=== PATIENT | male | born 1990 | race Caucasian/White ===

== ENCOUNTER 2021-06-08 09:42 | Inpatient (IN) | payer OTHER ==
[2021-06-08] MEDS ORDERED: BISMUTH SUBSALICYLATE 524 MG/30 ML PO PRN (09:46)
[2021-06-08] MEDS ORDERED: NICOTINE 10 MG CARTRIDGE (INHALER) IH PRN (09:46)
[2021-06-08] MEDS ORDERED: MENTHOL/PHENOL 1 EACH UD MM PRN (09:46)
[2021-06-08] MEDS ORDERED: MAGNESIUM CITRATE 300 ML BOTTLE PO PRN (09:46)
[2021-06-08] MEDS ORDERED: ACETAMINOPHEN 325 MG TABLET (FP) PO PRN ×2 (09:46)
[2021-06-08] MEDS ORDERED: MAG HYDROX/AL HYDROX/SIMETH 30 ML UNIT-DOSE CUP PO PRN (09:46)
[2021-06-08] MEDS ORDERED: MAGNESIUM HYDROX 2400MG/30ML ORAL SUSPENSION 30 ML CUP PO PRN (09:46)
[2021-06-08] MEDS ORDERED: methaDONE HCL 10 MG TABLET PO SCH (10:00)
[2021-06-08 10:18] VITALS: BMI 21.2
[2021-06-08] MEDS ORDERED: methaDONE 80 MG, methaDONE 10 MG PO ONE (10:45)
[2021-06-08] MEDS ORDERED: methaDONE HCL 10 MG TABLET ONE (10:49)
[2021-06-08] MEDS ORDERED: methaDONE HCL 40 MG DISPERSABLE TABLET ONE (10:50)
[2021-06-08] MEDS: METHOCARBAMOL 500 MG TABLET PO PRN ×2 (10:51→18:58)
[2021-06-08] MEDS: PRENATAL VITAMINS W/ FOLIC ACID TABLET (FP) PO SCH (10:52)
[2021-06-08] MEDS: NICOTINE 7 MG/24 HOURS TOPICAL PATCH TD SCH (10:52)
[2021-06-08] MEDS: diazePAM 5 MG TABLET PO SCH ×3 (10:52→22:14)
[2021-06-08] MEDS: hydrOXYzine PAMOATE 25 MG CAPSULE (FP) PO SCH ×5 (10:52→23:22)
[2021-06-08] MEDS: ONDANSETRON *ODT* 4 MG TABLET SL PRN ×2 (10:56→18:58)
[2021-06-08] MEDS ORDERED: MELATONIN 5 MG TABLETS PO PRN (12:35)
[2021-06-08] MEDS: diazePAM 5 MG TABLET PO PRN (14:56)
[2021-06-08] MEDS: GABAPENTIN 300 MG CAPSULE PO SCH ×2 (14:56→22:14)
[2021-06-08] MEDS: VENLAFAXINE HCL 150 MG E.R. CAPSULE PO SCH (14:56)
[2021-06-08] MEDS: cloNIDine HCL 0.1 MG TABLET PO PRN (18:54)
[2021-06-08] MEDS ORDERED: MELATONIN 5 MG TABLETS PO SCH (22:00)
[2021-06-08] MEDS: THIAMINE HCL 100 MG TABLET (FP) PO SCH (22:14)
[2021-06-08] MEDS: QUEtiapine FUMARATE 100 MG TABLET (FP) PO SCH (23:21)
[2021-06-09] MEDS ORDERED: methaDONE HCL 10 MG TABLET ONE (04:01)
[2021-06-09] MEDS ORDERED: methaDONE HCL 40 MG DISPERSABLE TABLET ONE (04:02)
[2021-06-09] MEDS: methaDONE 80 MG, methaDONE 10 MG PO SCH (05:22)
[2021-06-09] MEDS: GABAPENTIN 300 MG CAPSULE PO SCH ×3 (05:23→22:11)
[2021-06-09] MEDS: diazePAM 5 MG TABLET PO SCH ×4 (05:23→22:11)
[2021-06-09] MEDS: ONDANSETRON *ODT* 4 MG TABLET SL PRN ×2 (05:29→17:10)
[2021-06-09] MEDS: hydrOXYzine PAMOATE 25 MG CAPSULE (FP) PO SCH ×5 (05:53→22:12)
[2021-06-09] MEDS: VENLAFAXINE HCL 150 MG E.R. CAPSULE PO SCH (07:28)
[2021-06-09] MEDS ORDERED: TRIMETHOBENZAMIDE HCL 200MG/2ML INJ IM PRN (08:28)
[2021-06-09] MEDS: diazePAM 5 MG TABLET PO PRN (08:38)
[2021-06-09] MEDS: PRENATAL VITAMINS W/ FOLIC ACID TABLET (FP) PO SCH (10:05)
[2021-06-09] MEDS: NICOTINE 7 MG/24 HOURS TOPICAL PATCH TD SCH (10:06)
[2021-06-09] MEDS: METHOCARBAMOL 500 MG TABLET PO PRN ×2 (10:50→22:14)
[2021-06-09 12:47] LABS: HEMATOCRIT 36.9 % (35.4-49); HEMOGLOBIN 12.4 GM/dL (11.7-16.9); MCH 25.9 pg (25.7-33.7); MCHC 33.5 g/dl (32.0-35.9); MEAN CELL VOLUME 77.4 fl (80-96); MEAN PLT VOLUME 8.7 fl (7.5-11.1); PLATELET COUNT 327 10^3/uL (134-434); RBC 4.77 M/mm3 (4.00-5.60); WHITE BLOOD COUNT 7.5 K/mm3 (4.0-10.0)
[2021-06-09 12:48] LABS: ALBUMIN 3.2 g/dl (3.4-5.0); BLOOD UREA NITROGEN 12.3 mg/dL (7-18); CALCIUM 8.7 mg/dL (8.5-10.1)
[2021-06-09 12:52] LABS: CREATININE 0.7 mg/dL (0.55-1.3)
[2021-06-09 12:53] LABS: BILIRUBIN,TOTAL 0.2 mg/dL (0.2-1)
[2021-06-09] MEDS: cloNIDine HCL 0.1 MG TABLET PO PRN ×2 (13:29→22:11)
[2021-06-09 13:47] LABS: HIV INTERPRETATION NEGATIVE (NEGATIVE)
[2021-06-09] MEDS: IBUPROFEN 400 MG TABLET (FP) PO PRN (17:10)
[2021-06-09] MEDS: THIAMINE HCL 100 MG TABLET (FP) PO SCH (22:11)
[2021-06-09] MEDS: QUEtiapine FUMARATE 100 MG TABLET (FP) PO SCH (23:47)
[2021-06-10] MEDS ORDERED: methaDONE HCL 40 MG DISPERSABLE TABLET ONE (04:05)
[2021-06-10] MEDS ORDERED: methaDONE HCL 10 MG TABLET ONE (04:05)
[2021-06-10] MEDS: ONDANSETRON *ODT* 4 MG TABLET SL PRN (05:13)
[2021-06-10] MEDS: diazePAM 5 MG TABLET PO SCH ×3 (05:14→22:30)
[2021-06-10] MEDS: GABAPENTIN 300 MG CAPSULE PO SCH ×3 (05:14→22:30)
[2021-06-10] MEDS: methaDONE 80 MG, methaDONE 10 MG PO SCH (05:15)
[2021-06-10] MEDS: hydrOXYzine PAMOATE 25 MG CAPSULE (FP) PO SCH ×5 (05:19→22:30)
[2021-06-10] MEDS: VENLAFAXINE HCL 150 MG E.R. CAPSULE PO SCH (07:13)
[2021-06-10] MEDS: cloNIDine HCL 0.1 MG TABLET PO PRN (07:51)
[2021-06-10] MEDS: METHOCARBAMOL 500 MG TABLET PO PRN (07:51)
[2021-06-10] MEDS: PRENATAL VITAMINS W/ FOLIC ACID TABLET (FP) PO SCH (10:24)
[2021-06-10] MEDS: IBUPROFEN 400 MG TABLET (FP) PO PRN (10:26)
[2021-06-10] MEDS: diazePAM 5 MG TABLET PO PRN ×2 (10:27→17:39)
[2021-06-10] MEDS: NICOTINE 7 MG/24 HOURS TOPICAL PATCH TD SCH (11:05)
[2021-06-10] MEDS: NICOTINE POLACRILEX 2 MG GUM BUC PRN ×2 (11:46→17:40)
[2021-06-10] MEDS: QUEtiapine FUMARATE 100 MG TABLET (FP) PO SCH (22:29)
[2021-06-10] MEDS: THIAMINE HCL 100 MG TABLET (FP) PO SCH (22:30)
[2021-06-11] MEDS ORDERED: methaDONE HCL 10 MG TABLET ONE (04:03)
[2021-06-11] MEDS ORDERED: methaDONE HCL 40 MG DISPERSABLE TABLET ONE (04:03)
[2021-06-11] MEDS: hydrOXYzine PAMOATE 25 MG CAPSULE (FP) PO SCH ×5 (05:49→22:24)
[2021-06-11] MEDS: methaDONE 80 MG, methaDONE 10 MG PO SCH (05:49)
[2021-06-11] MEDS: diazePAM 5 MG TABLET PO SCH ×2 (05:50→17:57)
[2021-06-11] MEDS: GABAPENTIN 300 MG CAPSULE PO SCH ×3 (05:50→22:23)
[2021-06-11] MEDS: ONDANSETRON *ODT* 4 MG TABLET SL PRN ×2 (05:54→18:02)
[2021-06-11] MEDS: VENLAFAXINE HCL 150 MG E.R. CAPSULE PO SCH (07:57)
[2021-06-11] MEDS: NICOTINE 7 MG/24 HOURS TOPICAL PATCH TD SCH (10:39)
[2021-06-11] MEDS: METHOCARBAMOL 500 MG TABLET PO PRN ×2 (10:41→18:03)
[2021-06-11] MEDS: cloNIDine HCL 0.1 MG TABLET PO PRN ×2 (10:42→18:03)
[2021-06-11] MEDS: NICOTINE POLACRILEX 2 MG GUM BUC PRN ×2 (10:43→18:04)
[2021-06-11] MEDS: PRENATAL VITAMINS W/ FOLIC ACID TABLET (FP) PO SCH (10:55)
[2021-06-11] MEDS: QUEtiapine FUMARATE 100 MG TABLET (FP) PO SCH (22:23)
[2021-06-11] MEDS: THIAMINE HCL 100 MG TABLET (FP) PO SCH (22:23)
[2021-06-12] MEDS ORDERED: methaDONE HCL 10 MG TABLET ONE (04:15)
[2021-06-12] MEDS ORDERED: methaDONE HCL 40 MG DISPERSABLE TABLET ONE (04:15)
[2021-06-12] MEDS ORDERED: diazePAM 5 MG TABLET PO ONE (06:00)
[2021-06-12] MEDS: methaDONE 80 MG, methaDONE 10 MG PO SCH (06:43)
[2021-06-12] MEDS: GABAPENTIN 300 MG CAPSULE PO SCH ×3 (06:44→22:31)
[2021-06-12] MEDS: hydrOXYzine PAMOATE 25 MG CAPSULE (FP) PO SCH ×5 (06:44→22:32)
[2021-06-12] MEDS ORDERED: VENLAFAXINE HCL 75 MG E.R. CAPSULES PO SCH (10:00)
[2021-06-12] MEDS: METHOCARBAMOL 500 MG TABLET PO PRN ×2 (11:04→17:10)
[2021-06-12] MEDS: NICOTINE POLACRILEX 2 MG GUM BUC PRN ×2 (11:06→17:11)
[2021-06-12] MEDS: cloNIDine HCL 0.1 MG TABLET PO PRN ×2 (11:18→17:10)
[2021-06-12] MEDS: NICOTINE 7 MG/24 HOURS TOPICAL PATCH TD SCH (11:32)
[2021-06-12] MEDS: PRENATAL VITAMINS W/ FOLIC ACID TABLET (FP) PO SCH (11:33)
[2021-06-12] MEDS: VENLAFAXINE HCL 150 MG E.R. CAPSULE PO SCH (11:34)
[2021-06-12] MEDS ORDERED: VENLAFAXINE HCL 150 MG E.R. CAPSULE PO SCH (11:44)
[2021-06-12] MEDS: ONDANSETRON *ODT* 4 MG TABLET SL PRN ×2 (17:10→22:34)
[2021-06-12] MEDS: THIAMINE HCL 100 MG TABLET (FP) PO SCH (22:31)
[2021-06-12] MEDS: QUEtiapine FUMARATE 100 MG TABLET (FP) PO SCH (22:31)
[2021-06-13] MEDS ORDERED: methaDONE HCL 10 MG TABLET ONE (04:42)
[2021-06-13] MEDS ORDERED: methaDONE HCL 40 MG DISPERSABLE TABLET ONE (04:42)
[2021-06-13] MEDS: methaDONE 80 MG, methaDONE 10 MG PO SCH (05:38)
[2021-06-13] MEDS ORDERED: diazePAM 5 MG TABLET PO ONE (06:00)
[2021-06-13] MEDS: GABAPENTIN 300 MG CAPSULE PO SCH ×2 (06:20→13:32)
[2021-06-13] MEDS: IBUPROFEN 400 MG TABLET (FP) PO PRN (06:20)
[2021-06-13] MEDS: hydrOXYzine PAMOATE 25 MG CAPSULE (FP) PO SCH ×3 (06:20→13:32)
[2021-06-13] MEDS: NICOTINE POLACRILEX 2 MG GUM BUC PRN ×5 (07:58→17:44)
[2021-06-13] MEDS: PRENATAL VITAMINS W/ FOLIC ACID TABLET (FP) PO SCH (10:22)
[2021-06-13] MEDS: NICOTINE 7 MG/24 HOURS TOPICAL PATCH TD SCH (10:22)
[2021-06-13] MEDS: METHOCARBAMOL 500 MG TABLET PO PRN (10:23)
[2021-06-13 14:19] VITALS: BP 108/65; PULSE 83; TEMP 96.2
[2021-06-13] MEDS ORDERED: ALBUTEROL SO4 HFA INHALER IH PRN (14:57)
[2021-06-13] MEDS ORDERED: PANTOPRAZOLE 40 MG TABLET PO SCH (15:00)
[2021-06-13] MEDS: THIAMINE HCL 100 MG TABLET (FP) PO SCH (21:58)
== END 2021-06-13 18:02 | disposition other institution (70) | DRG 773 ==
LOC: YASAS 09:42 → Y6N 10:19 → Y3N 06-11 16:46
PROVIDERS: ADMIT Allergy & Immunology; ATTEND Allergy & Immunology
PROC: HZ2ZZZZ Detoxification Services for Substance Abuse Treatment (ICD-10-PCS; principal; 2021-06-08)
DX: F10.230 Alcohol dependence with withdrawal, uncomplicated (principal); F13.230 Sedative, hypnotic or anxiolytic dependence with withdrawal, uncomplicated; F11.20 Opioid dependence, uncomplicated; F14.20 Cocaine dependence, uncomplicated; F19.280 Other psychoactive substance dependence with psychoactive substance-induced anxiety disorder; F19.282 Other psychoactive substance dependence with psychoactive substance-induced sleep disorder; F19.24 Other psychoactive substance dependence with psychoactive substance-induced mood disorder; F31.9 Bipolar disorder, unspecified; F43.10 Post-traumatic stress disorder, unspecified; Z62.810 Personal history of physical and sexual abuse in childhood; Z87.19 Personal history of other diseases of the digestive system; Z87.09 Personal history of other diseases of the respiratory system; Z56.0 Unemployment, unspecified; Z59.0 Homelessness
CPT/HCPCS: 36415; 80053; 85027; 86780; 86803; 87389; 93005; 93010; 99282-25; C9803; J0735; Q0162; U0003; U0005

== ENCOUNTER 2021-06-13 17:54 | Inpatient (IN) | payer OTHER ==
[2021-06-13] MEDS ORDERED: MASKS NR ONE (19:37)
[2021-06-13] MEDS: IBUPROFEN 400 MG TABLET (FP) PO PRN (22:49)
[2021-06-13] MEDS ORDERED: MENTHOL/PHENOL 1 EACH UD MM PRN (23:19)
[2021-06-13] MEDS ORDERED: hydrOXYzine PAMOATE 25 MG CAPSULE (FP) PO PRN (23:19)
[2021-06-13] MEDS ORDERED: MAGNESIUM HYDROX 2400MG/30ML ORAL SUSPENSION 30 ML CUP PO PRN (23:19)
[2021-06-13] MEDS ORDERED: LOPERAMIDE HCL 2 MG CAPSULE PO PRN (23:19)
[2021-06-13] MEDS ORDERED: MAG HYDROX/AL HYDROX/SIMETH 30 ML UNIT-DOSE CUP PO PRN (23:19)
[2021-06-13] MEDS ORDERED: ACETAMINOPHEN 325 MG TABLET (FP) PO PRN (23:19)
[2021-06-13] MEDS ORDERED: P-EPHED 60MG/TRIPROLIDI 2.5MG TABLET PO PRN (23:19)
[2021-06-13] MEDS ORDERED: MAGNESIUM CITRATE 300 ML BOTTLE PO PRN (23:19)
[2021-06-13] MEDS ORDERED: guaiFENesin 200 MG/10 ML 10 ML UNIT-DOSE CUPS PO PRN (23:19)
[2021-06-13] MEDS: MELATONIN 5 MG TABLETS PO SCH (23:33)
[2021-06-14] MEDS ORDERED: methaDONE HCL 40 MG DISPERSABLE TABLET ONE (05:59)
[2021-06-14] MEDS ORDERED: methaDONE HCL 10 MG TABLET ONE (05:59)
[2021-06-14] MEDS ORDERED: methaDONE HCL 40 MG DISPERSABLE TABLET PO SCH (06:00)
[2021-06-14] MEDS: methaDONE 80 MG, methaDONE 10 MG PO SCH (06:17)
[2021-06-14] MEDS: NICOTINE POLACRILEX 2 MG GUM BUC PRN ×5 (06:19→21:49)
[2021-06-14] MEDS ORDERED: GABAPENTIN 300 MG CAPSULE PO SCH (07:30)
[2021-06-14] MEDS: PRENATAL VITAMINS W/ FOLIC ACID TABLET (FP) PO SCH (09:14)
[2021-06-14] MEDS: VENLAFAXINE HCL 150 MG E.R. CAPSULE PO SCH (09:47)
[2021-06-14] MEDS ORDERED: NICOTINE 14 MG/24 HOURS TOPICAL PATCH TD SCH (10:00)
[2021-06-14] MEDS ORDERED: cloNIDine HCL 0.1 MG TABLET PO PRN (10:50)
[2021-06-14] MEDS: PANTOPRAZOLE 40 MG TABLET PO SCH (11:30)
[2021-06-14] MEDS: IBUPROFEN 400 MG TABLET (FP) PO PRN (13:30)
[2021-06-14] MEDS: GABAPENTIN 300 MG CAPSULE PO SCH ×2 (13:30→21:04)
[2021-06-14] MEDS: METHOCARBAMOL 500 MG TABLET PO SCH ×2 (13:30→21:04)
[2021-06-14] MEDS: NICOTINE 10 MG CARTRIDGE (INHALER) IH PRN ×2 (13:31→21:48)
[2021-06-14] MEDS: ALBUTEROL SO4 HFA INHALER IH PRN (14:02)
[2021-06-14] MEDS: THIAMINE HCL 100 MG TABLET (FP) PO SCH (21:04)
[2021-06-14] MEDS: ONDANSETRON *ODT* 4 MG TABLET SL PRN (21:05)
[2021-06-14] MEDS: QUEtiapine FUMARATE 100 MG TABLET (FP) PO SCH (21:05)
[2021-06-14] MEDS: MELATONIN 5 MG TABLETS PO SCH (21:06)
[2021-06-15] MEDS ORDERED: methaDONE HCL 10 MG TABLET ONE (03:06)
[2021-06-15] MEDS ORDERED: methaDONE HCL 40 MG DISPERSABLE TABLET ONE (03:06)
[2021-06-15] MEDS: METHOCARBAMOL 500 MG TABLET PO SCH ×3 (05:45→21:34)
[2021-06-15] MEDS: methaDONE 80 MG, methaDONE 10 MG PO SCH (05:45)
[2021-06-15] MEDS: GABAPENTIN 300 MG CAPSULE PO SCH ×3 (05:45→21:34)
[2021-06-15] MEDS: NICOTINE POLACRILEX 2 MG GUM BUC PRN ×6 (05:46→21:36)
[2021-06-15] MEDS: IBUPROFEN 400 MG TABLET (FP) PO PRN ×2 (06:27→14:06)
[2021-06-15] MEDS: VENLAFAXINE HCL 150 MG E.R. CAPSULE PO SCH (10:26)
[2021-06-15] MEDS: PANTOPRAZOLE 40 MG TABLET PO SCH (10:26)
[2021-06-15] MEDS: PRENATAL VITAMINS W/ FOLIC ACID TABLET (FP) PO SCH (10:26)
[2021-06-15] MEDS: MELATONIN 5 MG TABLETS PO SCH (21:34)
[2021-06-15] MEDS: QUEtiapine FUMARATE 100 MG TABLET (FP) PO SCH (21:35)
[2021-06-15] MEDS: THIAMINE HCL 100 MG TABLET (FP) PO SCH (21:35)
[2021-06-16] MEDS ORDERED: methaDONE HCL 40 MG DISPERSABLE TABLET ONE (03:03)
[2021-06-16] MEDS ORDERED: methaDONE HCL 10 MG TABLET ONE (03:03)
[2021-06-16] MEDS: methaDONE 80 MG, methaDONE 10 MG PO SCH (06:07)
[2021-06-16] MEDS: GABAPENTIN 300 MG CAPSULE PO SCH ×3 (06:08→21:06)
[2021-06-16] MEDS: METHOCARBAMOL 500 MG TABLET PO SCH ×3 (06:08→21:06)
[2021-06-16] MEDS: IBUPROFEN 400 MG TABLET (FP) PO PRN ×2 (06:08→16:42)
[2021-06-16] MEDS: NICOTINE POLACRILEX 2 MG GUM BUC PRN ×6 (06:11→20:00)
[2021-06-16] MEDS: ONDANSETRON *ODT* 4 MG TABLET SL PRN (08:45)
[2021-06-16] MEDS: ALBUTEROL SO4 HFA INHALER IH PRN (08:46)
[2021-06-16] MEDS ORDERED: PT OWN MED DRAWER 7, Y5N ONE (09:09)
[2021-06-16] MEDS: PRENATAL VITAMINS W/ FOLIC ACID TABLET (FP) PO SCH (09:51)
[2021-06-16] MEDS: PANTOPRAZOLE 40 MG TABLET PO SCH (09:51)
[2021-06-16] MEDS: VENLAFAXINE HCL 150 MG E.R. CAPSULE PO SCH (09:51)
[2021-06-16] MEDS: MELATONIN 5 MG TABLETS PO SCH (21:06)
[2021-06-16] MEDS: THIAMINE HCL 100 MG TABLET (FP) PO SCH (21:06)
[2021-06-16] MEDS: QUEtiapine FUMARATE 100 MG TABLET (FP) PO SCH (21:06)
[2021-06-17] MEDS ORDERED: methaDONE HCL 40 MG DISPERSABLE TABLET ONE (03:12)
[2021-06-17] MEDS ORDERED: methaDONE HCL 10 MG TABLET ONE (03:12)
[2021-06-17] MEDS: METHOCARBAMOL 500 MG TABLET PO SCH ×3 (06:15→21:37)
[2021-06-17] MEDS: methaDONE 80 MG, methaDONE 10 MG PO SCH (06:15)
[2021-06-17] MEDS: IBUPROFEN 400 MG TABLET (FP) PO PRN ×2 (06:15→21:38)
[2021-06-17] MEDS: GABAPENTIN 300 MG CAPSULE PO SCH ×3 (06:15→21:37)
[2021-06-17] MEDS: NICOTINE POLACRILEX 2 MG GUM BUC PRN ×4 (08:43→21:39)
[2021-06-17] MEDS: PRENATAL VITAMINS W/ FOLIC ACID TABLET (FP) PO SCH (10:30)
[2021-06-17] MEDS: PANTOPRAZOLE 40 MG TABLET PO SCH (10:30)
[2021-06-17] MEDS: VENLAFAXINE HCL 150 MG E.R. CAPSULE PO SCH (10:31)
[2021-06-17] MEDS: QUEtiapine FUMARATE 100 MG TABLET (FP) PO SCH (21:37)
[2021-06-17] MEDS: MELATONIN 5 MG TABLETS PO SCH (21:38)
[2021-06-17] MEDS: THIAMINE HCL 100 MG TABLET (FP) PO SCH (21:38)
[2021-06-18] MEDS ORDERED: methaDONE HCL 40 MG DISPERSABLE TABLET ONE (03:12)
[2021-06-18] MEDS ORDERED: methaDONE HCL 10 MG TABLET ONE (03:13)
[2021-06-18] MEDS: METHOCARBAMOL 500 MG TABLET PO SCH ×6 (06:09→23:52)
[2021-06-18] MEDS: GABAPENTIN 300 MG CAPSULE PO SCH ×3 (06:09→21:15)
[2021-06-18] MEDS: methaDONE 80 MG, methaDONE 10 MG PO SCH (06:09)
[2021-06-18] MEDS: IBUPROFEN 400 MG TABLET (FP) PO PRN ×3 (06:09→23:52)
[2021-06-18] MEDS: NICOTINE POLACRILEX 2 MG GUM BUC PRN ×2 (06:10→08:31)
[2021-06-18] MEDS ORDERED: PT OWN MED DRAWER 7, Y5N ONE (09:02)
[2021-06-18] MEDS: PANTOPRAZOLE 40 MG TABLET PO SCH (09:34)
[2021-06-18] MEDS: PRENATAL VITAMINS W/ FOLIC ACID TABLET (FP) PO SCH (09:34)
[2021-06-18] MEDS: VENLAFAXINE HCL 150 MG E.R. CAPSULE PO SCH (09:34)
[2021-06-18] MEDS: NICOTINE POLACRILEX 4 MG GUM BUC PRN ×3 (11:38→16:34)
[2021-06-18] MEDS: QUEtiapine FUMARATE 100 MG TABLET (FP) PO SCH (21:16)
[2021-06-18] MEDS: MELATONIN 5 MG TABLETS PO SCH (22:42)
[2021-06-18] MEDS: THIAMINE HCL 100 MG TABLET (FP) PO SCH (22:43)
[2021-06-19] MEDS ORDERED: methaDONE HCL 40 MG DISPERSABLE TABLET ONE (03:21)
[2021-06-19] MEDS ORDERED: methaDONE HCL 10 MG TABLET ONE (03:21)
[2021-06-19] MEDS: IBUPROFEN 400 MG TABLET (FP) PO PRN ×3 (06:17→21:32)
[2021-06-19] MEDS: methaDONE 80 MG, methaDONE 10 MG PO SCH (06:17)
[2021-06-19] MEDS: GABAPENTIN 300 MG CAPSULE PO SCH ×3 (06:17→21:32)
[2021-06-19] MEDS: NICOTINE POLACRILEX 4 MG GUM BUC PRN ×6 (06:18→21:34)
[2021-06-19] MEDS ORDERED: PT OWN MED DRAWER 7, Y5N ONE (09:12)
[2021-06-19] MEDS: VENLAFAXINE HCL 150 MG E.R. CAPSULE PO SCH (10:22)
[2021-06-19] MEDS: PRENATAL VITAMINS W/ FOLIC ACID TABLET (FP) PO SCH (10:22)
[2021-06-19] MEDS: METHOCARBAMOL 500 MG TABLET PO SCH ×4 (10:23→21:33)
[2021-06-19] MEDS: NICOTINE 10 MG CARTRIDGE (INHALER) IH PRN (10:23)
[2021-06-19] MEDS: PANTOPRAZOLE 40 MG TABLET PO SCH (10:23)
[2021-06-19] MEDS: QUEtiapine FUMARATE 100 MG TABLET (FP) PO SCH (21:33)
[2021-06-19] MEDS: MELATONIN 5 MG TABLETS PO SCH (21:33)
[2021-06-19] MEDS: THIAMINE HCL 100 MG TABLET (FP) PO SCH (21:34)
[2021-06-20] MEDS ORDERED: methaDONE HCL 40 MG DISPERSABLE TABLET ONE (02:50)
[2021-06-20] MEDS ORDERED: methaDONE HCL 10 MG TABLET ONE (02:51)
[2021-06-20] MEDS: methaDONE 80 MG, methaDONE 10 MG PO SCH (06:22)
[2021-06-20] MEDS: IBUPROFEN 400 MG TABLET (FP) PO PRN ×3 (06:22→23:05)
[2021-06-20] MEDS: GABAPENTIN 300 MG CAPSULE PO SCH ×3 (06:22→21:06)
[2021-06-20] MEDS: NICOTINE POLACRILEX 4 MG GUM BUC PRN ×6 (06:23→21:32)
[2021-06-20] MEDS: PRENATAL VITAMINS W/ FOLIC ACID TABLET (FP) PO SCH (09:39)
[2021-06-20] MEDS: PANTOPRAZOLE 40 MG TABLET PO SCH (09:39)
[2021-06-20] MEDS: VENLAFAXINE HCL 150 MG E.R. CAPSULE PO SCH (09:40)
[2021-06-20] MEDS: METHOCARBAMOL 500 MG TABLET PO SCH ×4 (09:40→23:03)
[2021-06-20] MEDS: QUEtiapine FUMARATE 100 MG TABLET (FP) PO SCH (21:05)
[2021-06-20] MEDS: THIAMINE HCL 100 MG TABLET (FP) PO SCH (23:03)
[2021-06-20] MEDS: MELATONIN 5 MG TABLETS PO SCH (23:03)
[2021-06-21] MEDS ORDERED: methaDONE HCL 10 MG TABLET ONE (04:08)
[2021-06-21] MEDS ORDERED: methaDONE HCL 40 MG DISPERSABLE TABLET ONE (04:08)
[2021-06-21] MEDS ORDERED: methaDONE HCL 40 MG DISPERSABLE TABLET PO SCH (06:00)
[2021-06-21] MEDS: methaDONE 80 MG, methaDONE 10 MG PO SCH (06:22)
[2021-06-21] MEDS: GABAPENTIN 300 MG CAPSULE PO SCH ×3 (06:23→21:26)
[2021-06-21] MEDS: NICOTINE POLACRILEX 4 MG GUM BUC PRN ×7 (06:23→21:27)
[2021-06-21] MEDS: IBUPROFEN 400 MG TABLET (FP) PO PRN ×3 (07:59→23:02)
[2021-06-21] MEDS: PANTOPRAZOLE 40 MG TABLET PO SCH (10:37)
[2021-06-21] MEDS: PRENATAL VITAMINS W/ FOLIC ACID TABLET (FP) PO SCH (10:37)
[2021-06-21] MEDS: VENLAFAXINE HCL 150 MG E.R. CAPSULE PO SCH (10:38)
[2021-06-21] MEDS: METHOCARBAMOL 500 MG TABLET PO SCH ×4 (10:38→21:27)
[2021-06-21] MEDS: THIAMINE HCL 100 MG TABLET (FP) PO SCH (21:25)
[2021-06-21] MEDS: QUEtiapine FUMARATE 100 MG TABLET (FP) PO SCH (21:26)
[2021-06-21] MEDS: MELATONIN 5 MG TABLETS PO SCH (21:27)
[2021-06-22] MEDS ORDERED: methaDONE HCL 40 MG DISPERSABLE TABLET ONE (03:14)
[2021-06-22] MEDS ORDERED: methaDONE HCL 10 MG TABLET ONE (03:14)
[2021-06-22] MEDS: GABAPENTIN 300 MG CAPSULE PO SCH ×3 (06:14→21:04)
[2021-06-22] MEDS: IBUPROFEN 400 MG TABLET (FP) PO PRN ×3 (06:14→21:06)
[2021-06-22] MEDS: methaDONE 80 MG, methaDONE 10 MG PO SCH (06:14)
[2021-06-22] MEDS: PRENATAL VITAMINS W/ FOLIC ACID TABLET (FP) PO SCH (09:51)
[2021-06-22] MEDS: VENLAFAXINE HCL 150 MG E.R. CAPSULE PO SCH (09:51)
[2021-06-22] MEDS: PANTOPRAZOLE 40 MG TABLET PO SCH (09:51)
[2021-06-22] MEDS: NICOTINE POLACRILEX 4 MG GUM BUC PRN ×6 (09:53→21:20)
[2021-06-22] MEDS: METHOCARBAMOL 500 MG TABLET PO SCH ×4 (10:55→21:05)
[2021-06-22] MEDS: MELATONIN 5 MG TABLETS PO SCH (21:04)
[2021-06-22] MEDS: QUEtiapine FUMARATE 100 MG TABLET (FP) PO SCH (21:04)
[2021-06-22] MEDS: THIAMINE HCL 100 MG TABLET (FP) PO SCH (21:04)
[2021-06-23] MEDS ORDERED: methaDONE HCL 40 MG DISPERSABLE TABLET ONE (03:12)
[2021-06-23] MEDS ORDERED: methaDONE HCL 10 MG TABLET ONE (03:12)
[2021-06-23] MEDS: IBUPROFEN 400 MG TABLET (FP) PO PRN ×2 (06:09→17:33)
[2021-06-23] MEDS: NICOTINE POLACRILEX 4 MG GUM BUC PRN ×6 (06:09→22:31)
[2021-06-23] MEDS: GABAPENTIN 300 MG CAPSULE PO SCH ×3 (06:09→21:26)
[2021-06-23] MEDS: methaDONE 80 MG, methaDONE 10 MG PO SCH (06:09)
[2021-06-23] MEDS: PRENATAL VITAMINS W/ FOLIC ACID TABLET (FP) PO SCH (10:11)
[2021-06-23] MEDS: METHOCARBAMOL 500 MG TABLET PO SCH ×4 (10:12→21:26)
[2021-06-23] MEDS: PANTOPRAZOLE 40 MG TABLET PO SCH (10:12)
[2021-06-23] MEDS: VENLAFAXINE HCL 150 MG E.R. CAPSULE PO SCH (10:12)
[2021-06-23] MEDS: THIAMINE HCL 100 MG TABLET (FP) PO SCH (21:28)
[2021-06-23] MEDS: MELATONIN 5 MG TABLETS PO SCH (21:28)
[2021-06-23] MEDS ORDERED: QUEtiapine FUMARATE 200 MG TABLET PO SCH (22:00)
[2021-06-24] MEDS ORDERED: methaDONE HCL 40 MG DISPERSABLE TABLET ONE (03:33)
[2021-06-24] MEDS ORDERED: methaDONE HCL 10 MG TABLET ONE (03:34)
[2021-06-24] MEDS: NICOTINE POLACRILEX 4 MG GUM BUC PRN ×7 (06:26→19:55)
[2021-06-24] MEDS: GABAPENTIN 300 MG CAPSULE PO SCH ×3 (06:26→21:11)
[2021-06-24] MEDS: IBUPROFEN 400 MG TABLET (FP) PO PRN ×2 (06:26→19:56)
[2021-06-24] MEDS: methaDONE 80 MG, methaDONE 10 MG PO SCH (06:26)
[2021-06-24] MEDS: PANTOPRAZOLE 40 MG TABLET PO SCH (10:18)
[2021-06-24] MEDS: METHOCARBAMOL 500 MG TABLET PO SCH ×4 (10:18→21:13)
[2021-06-24] MEDS: VENLAFAXINE HCL 150 MG E.R. CAPSULE PO SCH (10:18)
[2021-06-24] MEDS: PRENATAL VITAMINS W/ FOLIC ACID TABLET (FP) PO SCH (10:18)
[2021-06-24] MEDS: QUEtiapine FUMARATE 50 MG TABLET PO SCH (21:12)
[2021-06-24] MEDS: THIAMINE HCL 100 MG TABLET (FP) PO SCH (21:13)
[2021-06-24] MEDS: MELATONIN 5 MG TABLETS PO SCH (21:13)
[2021-06-25] MEDS ORDERED: methaDONE HCL 10 MG TABLET ONE (03:55)
[2021-06-25] MEDS ORDERED: methaDONE HCL 40 MG DISPERSABLE TABLET ONE (03:55)
[2021-06-25] MEDS: GABAPENTIN 300 MG CAPSULE PO SCH ×3 (06:31→21:44)
[2021-06-25] MEDS: methaDONE 80 MG, methaDONE 10 MG PO SCH (06:31)
[2021-06-25] MEDS: IBUPROFEN 400 MG TABLET (FP) PO PRN ×2 (06:31→19:17)
[2021-06-25] MEDS: NICOTINE POLACRILEX 4 MG GUM BUC PRN ×7 (09:03→21:47)
[2021-06-25] MEDS: VENLAFAXINE HCL 75 MG E.R. CAPSULES PO SCH (10:16)
[2021-06-25] MEDS: PRENATAL VITAMINS W/ FOLIC ACID TABLET (FP) PO SCH (10:16)
[2021-06-25] MEDS: PANTOPRAZOLE 40 MG TABLET PO SCH (10:16)
[2021-06-25] MEDS: METHOCARBAMOL 500 MG TABLET PO SCH ×4 (10:17→21:45)
[2021-06-25] MEDS: MELATONIN 5 MG TABLETS PO SCH (21:44)
[2021-06-25] MEDS: QUEtiapine FUMARATE 50 MG TABLET PO SCH (21:45)
[2021-06-25] MEDS: THIAMINE HCL 100 MG TABLET (FP) PO SCH (21:48)
[2021-06-26] MEDS ORDERED: methaDONE HCL 10 MG TABLET ONE (03:04)
[2021-06-26] MEDS ORDERED: methaDONE HCL 40 MG DISPERSABLE TABLET ONE (03:04)
[2021-06-26] MEDS: methaDONE 80 MG, methaDONE 10 MG PO SCH (06:13)
[2021-06-26] MEDS: GABAPENTIN 300 MG CAPSULE PO SCH ×3 (06:13→21:09)
[2021-06-26] MEDS: IBUPROFEN 400 MG TABLET (FP) PO PRN ×2 (06:13→21:10)
[2021-06-26] MEDS: PRENATAL VITAMINS W/ FOLIC ACID TABLET (FP) PO SCH (09:32)
[2021-06-26] MEDS: PANTOPRAZOLE 40 MG TABLET PO SCH (09:32)
[2021-06-26] MEDS ORDERED: PT OWN MED DRAWER 7, Y5N ONE (09:34)
[2021-06-26] MEDS: METHOCARBAMOL 500 MG TABLET PO SCH ×4 (09:34→21:10)
[2021-06-26] MEDS: VENLAFAXINE HCL 75 MG E.R. CAPSULES PO SCH (09:34)
[2021-06-26] MEDS: NICOTINE POLACRILEX 4 MG GUM BUC PRN ×6 (09:35→21:11)
[2021-06-26] MEDS: QUEtiapine FUMARATE 50 MG TABLET PO SCH (21:09)
[2021-06-26] MEDS: MELATONIN 5 MG TABLETS PO SCH (21:10)
[2021-06-26] MEDS: THIAMINE HCL 100 MG TABLET (FP) PO SCH (21:11)
[2021-06-27] MEDS ORDERED: methaDONE HCL 40 MG DISPERSABLE TABLET ONE (03:04)
[2021-06-27] MEDS ORDERED: methaDONE HCL 10 MG TABLET ONE (03:05)
[2021-06-27] MEDS: methaDONE 80 MG, methaDONE 10 MG PO SCH (06:11)
[2021-06-27] MEDS: GABAPENTIN 300 MG CAPSULE PO SCH ×3 (06:11→21:27)
[2021-06-27] MEDS: IBUPROFEN 400 MG TABLET (FP) PO PRN ×2 (06:11→17:26)
[2021-06-27] MEDS: NICOTINE POLACRILEX 4 MG GUM BUC PRN ×7 (06:13→21:27)
[2021-06-27] MEDS ORDERED: PT OWN MED DRAWER 7, Y5N ONE (09:03)
[2021-06-27] MEDS: PRENATAL VITAMINS W/ FOLIC ACID TABLET (FP) PO SCH (10:01)
[2021-06-27] MEDS: METHOCARBAMOL 500 MG TABLET PO SCH ×4 (10:01→21:27)
[2021-06-27] MEDS: VENLAFAXINE HCL 75 MG E.R. CAPSULES PO SCH (10:01)
[2021-06-27] MEDS: PANTOPRAZOLE 40 MG TABLET PO SCH (10:01)
[2021-06-27] MEDS: THIAMINE HCL 100 MG TABLET (FP) PO SCH (21:26)
[2021-06-27] MEDS: MELATONIN 5 MG TABLETS PO SCH (21:26)
[2021-06-27] MEDS: QUEtiapine FUMARATE 50 MG TABLET PO SCH (21:27)
[2021-06-28] MEDS ORDERED: methaDONE HCL 40 MG DISPERSABLE TABLET ONE (05:57)
[2021-06-28] MEDS ORDERED: methaDONE HCL 10 MG TABLET ONE (05:57)
[2021-06-28] MEDS ORDERED: methaDONE 80 MG, methaDONE 10 MG PO SCH (06:00)
[2021-06-28] MEDS: IBUPROFEN 400 MG TABLET (FP) PO PRN (06:22)
[2021-06-28] MEDS: GABAPENTIN 300 MG CAPSULE PO SCH (06:22)
[2021-06-28] MEDS: NICOTINE POLACRILEX 4 MG GUM BUC PRN ×2 (06:23→09:19)
[2021-06-28 06:52] VITALS: BP 128/85; PULSE 85; TEMP 98.2
[2021-06-28] MEDS: METHOCARBAMOL 500 MG TABLET PO SCH (09:19)
[2021-06-28] MEDS: VENLAFAXINE HCL 75 MG E.R. CAPSULES PO SCH (09:19)
[2021-06-28] MEDS: PANTOPRAZOLE 40 MG TABLET PO SCH (09:19)
[2021-06-28] MEDS: PRENATAL VITAMINS W/ FOLIC ACID TABLET (FP) PO SCH (09:19)
== END 2021-06-28 09:41 | disposition home or self-care (01) | DRG 772 ==
LOC: YASAS 17:54 → Y3W 17:55
PROVIDERS: ADMIT Allergy & Immunology; ATTEND Allergy & Immunology
PROC: HZ42ZZZ Group Counseling for Substance Abuse Treatment, Cognitive-Behavioral (ICD-10-PCS; principal; 2021-06-13)
DX: F11.20 Opioid dependence, uncomplicated (principal); F14.20 Cocaine dependence, uncomplicated; F13.20 Sedative, hypnotic or anxiolytic dependence, uncomplicated; F12.20 Cannabis dependence, uncomplicated; F31.9 Bipolar disorder, unspecified; F43.10 Post-traumatic stress disorder, unspecified; J45.909 Unspecified asthma, uncomplicated; K50.90 Crohn's disease, unspecified, without complications; Z62.810 Personal history of physical and sexual abuse in childhood; Z56.0 Unemployment, unspecified; Z59.00 Homelessness unspecified
CPT/HCPCS: Q0162

== ENCOUNTER 2021-07-31 19:46 | Inpatient (IN) | payer OTHER ==
[2021-07-31 20:43] VITALS: BMI 25.8
[2021-07-31] MEDS ORDERED: MAGNESIUM HYDROX 2400MG/30ML ORAL SUSPENSION 30 ML CUP PO PRN (22:09)
[2021-07-31] MEDS ORDERED: ACETAMINOPHEN 325 MG TABLET (FP) PO PRN ×2 (22:09)
[2021-07-31] MEDS ORDERED: MENTHOL/PHENOL 1 EACH UD MM PRN (22:09)
[2021-07-31] MEDS ORDERED: MAG HYDROX/AL HYDROX/SIMETH 30 ML UNIT-DOSE CUP PO PRN (22:09)
[2021-07-31] MEDS ORDERED: BISMUTH SUBSALICYLATE 524 MG/30 ML PO PRN (22:09)
[2021-07-31] MEDS ORDERED: MAGNESIUM CITRATE 300 ML BOTTLE PO PRN (22:09)
[2021-07-31] MEDS ORDERED: diazePAM 5 MG TABLET PO PRN (22:12)
[2021-07-31] MEDS: diazePAM 5 MG TABLET PO SCH (23:40)
[2021-08-01] MEDS: diazePAM 5 MG TABLET PO SCH ×4 (06:17→22:43)
[2021-08-01] MEDS ORDERED: methaDONE HCL 10 MG TABLET PO SCH (09:30)
[2021-08-01] MEDS ORDERED: methaDONE HCL 10 MG TABLET ONE (09:59)
[2021-08-01] MEDS ORDERED: methaDONE HCL 40 MG DISPERSABLE TABLET ONE (10:00)
[2021-08-01] MEDS: PANTOPRAZOLE 40 MG TABLET PO SCH (10:09)
[2021-08-01] MEDS: METHOCARBAMOL 500 MG TABLET PO PRN ×2 (10:09→22:41)
[2021-08-01] MEDS: PRENATAL VITAMINS W/ FOLIC ACID TABLET (FP) PO SCH (10:11)
[2021-08-01] MEDS: DULoxetine HCL 60 MG CAPSULE.DR PO SCH (10:11)
[2021-08-01] MEDS ORDERED: ALBUTEROL SO4 HFA INHALER IH PRN (11:41)
[2021-08-01] MEDS: GABAPENTIN 300 MG CAPSULE PO SCH ×2 (15:23→22:41)
[2021-08-01] MEDS ORDERED: MELATONIN 5 MG TABLETS PO SCH (22:00)
[2021-08-01] MEDS: NICOTINE POLACRILEX 2 MG GUM BUC PRN (22:40)
[2021-08-01] MEDS: IBUPROFEN 400 MG TABLET (FP) PO PRN (22:40)
[2021-08-01] MEDS: THIAMINE HCL 100 MG TABLET (FP) PO SCH (22:41)
[2021-08-01] MEDS: QUEtiapine FUMARATE 100 MG TABLET (FP) PO SCH (23:49)
[2021-08-02] MEDS ORDERED: methaDONE HCL 40 MG DISPERSABLE TABLET ONE (04:37)
[2021-08-02] MEDS ORDERED: methaDONE HCL 10 MG TABLET ONE (04:37)
[2021-08-02] MEDS: GABAPENTIN 300 MG CAPSULE PO SCH ×3 (05:47→22:55)
[2021-08-02] MEDS: diazePAM 5 MG TABLET PO SCH ×3 (05:47→22:56)
[2021-08-02] MEDS: NICOTINE POLACRILEX 2 MG GUM BUC PRN ×7 (05:50→21:52)
[2021-08-02] MEDS: IBUPROFEN 400 MG TABLET (FP) PO PRN (05:51)
[2021-08-02] MEDS ORDERED: DULoxetine HCL 30 MG CAPSULE.DR PO SCH (09:37)
[2021-08-02] MEDS: PRENATAL VITAMINS W/ FOLIC ACID TABLET (FP) PO SCH (10:20)
[2021-08-02] MEDS: PANTOPRAZOLE 40 MG TABLET PO SCH (10:20)
[2021-08-02] MEDS: DULoxetine HCL 60 MG CAPSULE.DR PO SCH (11:06)
[2021-08-02] MEDS ORDERED: LOPERAMIDE HCL 2 MG CAPSULE PO PRN (12:07)
[2021-08-02] MEDS: IBUPROFEN 600 MG TABLET (FP) PO PRN ×2 (16:48→22:58)
[2021-08-02] MEDS: QUEtiapine FUMARATE 100 MG TABLET (FP) PO SCH (22:56)
[2021-08-02] MEDS: THIAMINE HCL 100 MG TABLET (FP) PO SCH (22:56)
[2021-08-02] MEDS: ONDANSETRON *ODT* 4 MG TABLET SL PRN (22:59)
[2021-08-02] MEDS: MELATONIN 5 MG TABLETS PO PRN (23:00)
[2021-08-03] MEDS ORDERED: methaDONE HCL 10 MG TABLET ONE (04:43)
[2021-08-03] MEDS ORDERED: methaDONE HCL 40 MG DISPERSABLE TABLET ONE (04:44)
[2021-08-03] MEDS: GABAPENTIN 300 MG CAPSULE PO SCH ×3 (05:39→22:12)
[2021-08-03] MEDS: diazePAM 5 MG TABLET PO SCH ×2 (05:39→17:51)
[2021-08-03] MEDS: ONDANSETRON *ODT* 4 MG TABLET SL PRN (05:42)
[2021-08-03] MEDS: NICOTINE POLACRILEX 2 MG GUM BUC PRN ×2 (05:42→08:24)
[2021-08-03] MEDS: DULoxetine HCL 60 MG CAPSULE.DR PO SCH (10:39)
[2021-08-03] MEDS: PRENATAL VITAMINS W/ FOLIC ACID TABLET (FP) PO SCH (10:39)
[2021-08-03] MEDS: PANTOPRAZOLE 40 MG TABLET PO SCH (10:39)
[2021-08-03] MEDS: IBUPROFEN 600 MG TABLET (FP) PO PRN ×2 (10:41→21:20)
[2021-08-03] MEDS: NICOTINE POLACRILEX 4 MG GUM BUC PRN ×5 (12:56→23:21)
[2021-08-03] MEDS: THIAMINE HCL 100 MG TABLET (FP) PO SCH (22:12)
[2021-08-03] MEDS: QUEtiapine FUMARATE 100 MG TABLET (FP) PO SCH (22:13)
[2021-08-03] MEDS: MELATONIN 5 MG TABLETS PO PRN (22:14)
[2021-08-04] MEDS ORDERED: methaDONE HCL 10 MG TABLET ONE (04:53)
[2021-08-04] MEDS ORDERED: methaDONE HCL 40 MG DISPERSABLE TABLET ONE (04:53)
[2021-08-04] MEDS: GABAPENTIN 300 MG CAPSULE PO SCH (05:34)
[2021-08-04] MEDS: NICOTINE POLACRILEX 4 MG GUM BUC PRN ×2 (05:37→09:48)
[2021-08-04] MEDS ORDERED: diazePAM 5 MG TABLET PO ONE (06:00)
[2021-08-04] MEDS: NICOTINE POLACRILEX 2 MG GUM BUC PRN (07:39)
[2021-08-04 08:43] VITALS: BP 135/93; PULSE 100; TEMP 97.3
[2021-08-04] MEDS: PRENATAL VITAMINS W/ FOLIC ACID TABLET (FP) PO SCH (10:06)
[2021-08-04] MEDS: PANTOPRAZOLE 40 MG TABLET PO SCH (10:06)
[2021-08-04] MEDS: DULoxetine HCL 60 MG CAPSULE.DR PO SCH (10:06)
[2021-08-04] MEDS: METHOCARBAMOL 500 MG TABLET PO PRN (10:06)
== END 2021-08-04 12:03 | disposition other institution (70) | DRG 773 ==
LOC: YASAS 19:46 → Y3N 22:37
PROVIDERS: ADMIT Allergy & Immunology; ATTEND Allergy & Immunology
PROC: HZ2ZZZZ Detoxification Services for Substance Abuse Treatment (ICD-10-PCS; principal; 2021-07-31)
DX: F10.230 Alcohol dependence with withdrawal, uncomplicated (principal); F11.20 Opioid dependence, uncomplicated; F14.20 Cocaine dependence, uncomplicated; F13.20 Sedative, hypnotic or anxiolytic dependence, uncomplicated; F17.210 Nicotine dependence, cigarettes, uncomplicated; F10.280 Alcohol dependence with alcohol-induced anxiety disorder; F19.282 Other psychoactive substance dependence with psychoactive substance-induced sleep disorder; F19.24 Other psychoactive substance dependence with psychoactive substance-induced mood disorder; F31.9 Bipolar disorder, unspecified; F43.10 Post-traumatic stress disorder, unspecified; J45.909 Unspecified asthma, uncomplicated; K21.9 Gastro-esophageal reflux disease without esophagitis; K50.90 Crohn's disease, unspecified, without complications; Z62.810 Personal history of physical and sexual abuse in childhood; Z56.0 Unemployment, unspecified; Z59.00 Homelessness unspecified
CPT/HCPCS: C9803; Q0162; U0003; U0005

== ENCOUNTER 2021-08-04 12:00 | Inpatient (IN) | payer OTHER ==
[2021-08-04] MEDS ORDERED: ACETAMINOPHEN 325 MG TABLET (FP) PO PRN (12:58)
[2021-08-04] MEDS ORDERED: MAGNESIUM HYDROX 2400MG/30ML ORAL SUSPENSION 30 ML CUP PO PRN (12:58)
[2021-08-04] MEDS ORDERED: MAGNESIUM CITRATE 300 ML BOTTLE PO PRN (12:58)
[2021-08-04] MEDS ORDERED: NICOTINE 10 MG CARTRIDGE (INHALER) IH PRN (12:58)
[2021-08-04] MEDS ORDERED: MAG HYDROX/AL HYDROX/SIMETH 30 ML UNIT-DOSE CUP PO PRN (12:58)
[2021-08-04] MEDS ORDERED: MENTHOL/PHENOL 1 EACH UD MM PRN (12:58)
[2021-08-04] MEDS ORDERED: guaiFENesin 200 MG/10 ML 10 ML UNIT-DOSE CUPS PO PRN (12:58)
[2021-08-04] MEDS ORDERED: P-EPHED 60MG/TRIPROLIDI 2.5MG TABLET PO PRN (12:58)
[2021-08-04] MEDS ORDERED: hydrOXYzine PAMOATE 25 MG CAPSULE (FP) PO PRN (12:58)
[2021-08-04] MEDS ORDERED: LOPERAMIDE HCL 2 MG CAPSULE PO PRN (12:58)
[2021-08-04] MEDS ORDERED: ALBUTEROL SO4 HFA INHALER IH PRN (12:59)
[2021-08-04] MEDS ORDERED: PT OWN MED DRAWER 7, Y5N ONE (14:05)
[2021-08-04] MEDS: IBUPROFEN 400 MG TABLET (FP) PO PRN (14:13)
[2021-08-04] MEDS: GABAPENTIN 300 MG CAPSULE PO SCH ×2 (14:13→21:03)
[2021-08-04] MEDS: NICOTINE POLACRILEX 2 MG GUM BUC PRN ×3 (14:14→21:04)
[2021-08-04] MEDS: QUEtiapine FUMARATE 100 MG TABLET (FP) PO SCH (21:03)
[2021-08-04] MEDS: MELATONIN 5 MG TABLETS PO SCH (21:04)
[2021-08-04] MEDS: THIAMINE HCL 100 MG TABLET (FP) PO SCH (21:04)
[2021-08-05] MEDS ORDERED: methaDONE HCL 40 MG DISPERSABLE TABLET ONE (04:13)
[2021-08-05] MEDS ORDERED: methaDONE HCL 10 MG TABLET ONE (04:13)
[2021-08-05] MEDS ORDERED: methaDONE HCL 40 MG DISPERSABLE TABLET PO SCH (06:00)
[2021-08-05] MEDS: GABAPENTIN 300 MG CAPSULE PO SCH ×3 (06:38→21:21)
[2021-08-05] MEDS: NICOTINE POLACRILEX 2 MG GUM BUC PRN ×5 (06:39→23:24)
[2021-08-05] MEDS ORDERED: NICOTINE 7 MG/24 HOURS TOPICAL PATCH TD SCH (10:00)
[2021-08-05] MEDS: PANTOPRAZOLE 40 MG TABLET PO SCH (10:05)
[2021-08-05] MEDS: DULoxetine HCL 60 MG CAPSULE.DR PO SCH (10:06)
[2021-08-05] MEDS: PRENATAL VITAMINS W/ FOLIC ACID TABLET (FP) PO SCH (10:06)
[2021-08-05] MEDS: NICOTINE POLACRILEX 4 MG GUM BUC PRN (13:55)
[2021-08-05] MEDS ORDERED: NICOTINE 10 MG CARTRIDGE (INHALER) IH PRN (15:19)
[2021-08-05] MEDS: NICOTINE 14 MG/24 HOURS TOPICAL PATCH TD SCH (15:42)
[2021-08-05 17:51] LABS: PH,URINE 7.5 (5.0-8.0); URINE APPEARANCE CLEAR; URINE BILIRUBIN NEGATIVE (NEGATIVE); URINE COLOR YELLOW; URINE GLUCOSE (UA) NEGATIVE (NEGATIVE); URINE KETONE TRACE (NEGATIVE); URINE LEUK ESTERASE NEGATIVE (NEGATIVE); URINE NITRITE NEGATIVE (NEGATIVE); URINE PROTEIN NEGATIVE (NEGATIVE)
[2021-08-05] MEDS: MELATONIN 5 MG TABLETS PO SCH (21:20)
[2021-08-05] MEDS: THIAMINE HCL 100 MG TABLET (FP) PO SCH (21:20)
[2021-08-05] MEDS: QUEtiapine FUMARATE 100 MG TABLET (FP) PO SCH (21:21)
[2021-08-05] MEDS: IBUPROFEN 400 MG TABLET (FP) PO PRN (21:21)
[2021-08-06] MEDS ORDERED: methaDONE HCL 10 MG TABLET ONE (04:18)
[2021-08-06] MEDS ORDERED: methaDONE HCL 40 MG DISPERSABLE TABLET ONE (04:18)
[2021-08-06] MEDS: GABAPENTIN 300 MG CAPSULE PO SCH ×3 (06:22→21:40)
[2021-08-06] MEDS: NICOTINE POLACRILEX 4 MG GUM BUC PRN ×5 (06:23→21:42)
[2021-08-06] MEDS ORDERED: DULoxetine HCL 30 MG CAPSULE.DR PO ONE (08:48)
[2021-08-06] MEDS: PRENATAL VITAMINS W/ FOLIC ACID TABLET (FP) PO SCH (09:42)
[2021-08-06] MEDS: PANTOPRAZOLE 40 MG TABLET PO SCH (09:42)
[2021-08-06] MEDS: DULoxetine HCL 60 MG CAPSULE.DR PO SCH (09:42)
[2021-08-06] MEDS: NICOTINE POLACRILEX 2 MG GUM BUC PRN (09:46)
[2021-08-06] MEDS: NICOTINE 14 MG/24 HOURS TOPICAL PATCH TD SCH (09:48)
[2021-08-06] MEDS: IBUPROFEN 400 MG TABLET (FP) PO PRN (14:06)
[2021-08-06] MEDS: THIAMINE HCL 100 MG TABLET (FP) PO SCH (21:40)
[2021-08-06] MEDS: QUEtiapine FUMARATE 100 MG TABLET (FP) PO SCH (21:40)
[2021-08-06] MEDS: MELATONIN 5 MG TABLETS PO SCH (21:41)
[2021-08-07] MEDS ORDERED: methaDONE HCL 10 MG TABLET ONE (03:54)
[2021-08-07] MEDS ORDERED: methaDONE HCL 40 MG DISPERSABLE TABLET ONE (03:55)
[2021-08-07] MEDS: GABAPENTIN 300 MG CAPSULE PO SCH (06:20)
[2021-08-07] MEDS: NICOTINE POLACRILEX 4 MG GUM BUC PRN ×2 (06:21→09:33)
[2021-08-07 08:02] VITALS: BP 112/75; PULSE 87; TEMP 98.4
[2021-08-07] MEDS ORDERED: DULoxetine HCL 30 MG CAPSULE.DR PO ONE (08:26)
[2021-08-07] MEDS: DULoxetine HCL 60 MG CAPSULE.DR PO SCH (09:32)
[2021-08-07] MEDS: NICOTINE 14 MG/24 HOURS TOPICAL PATCH TD SCH (09:32)
[2021-08-07] MEDS: PANTOPRAZOLE 40 MG TABLET PO SCH (09:33)
[2021-08-07] MEDS: PRENATAL VITAMINS W/ FOLIC ACID TABLET (FP) PO SCH (09:33)
[2021-08-07] MEDS: IBUPROFEN 400 MG TABLET (FP) PO PRN (09:34)
== END 2021-08-07 12:27 | disposition left against medical advice (07) | DRG 770 ==
LOC: YASAS 12:00 → Y3E 12:01
PROVIDERS: ADMIT Allergy & Immunology; ATTEND Allergy & Immunology
PROC: HZ42ZZZ Group Counseling for Substance Abuse Treatment, Cognitive-Behavioral (ICD-10-PCS; principal; 2021-08-04)
DX: F13.20 Sedative, hypnotic or anxiolytic dependence, uncomplicated (principal); F11.20 Opioid dependence, uncomplicated; F31.9 Bipolar disorder, unspecified; F43.10 Post-traumatic stress disorder, unspecified; K50.90 Crohn's disease, unspecified, without complications; J45.909 Unspecified asthma, uncomplicated
CPT/HCPCS: 81003